=== PATIENT | male | born 1985 | race African-American/Black ===

== ENCOUNTER 2018-01-01 19:46 | Emergency (ER) | payer SELFPAY ==
[2018-01-01] MEDS ORDERED: IBUPROFEN 800 MG TABLET PO ONE (20:22)
[2018-01-01] MEDS ORDERED: OXYCODONE-ACETAMINOPHEN 5-325 MG TABLET PO ONE (20:22)
--- NOTE | 2018-01-01 20:23 | ER Document Report ---
ED GI/ - General Chief Complaint: Testicular Swelling Stated Complaint: TESTICULAR SWELLING Time Seen by Provider: 01/01/18 20:08 Notes: 32-year-old male to emergency department chief complaint of left testicle pain 1 day. Woke up with pain in the left testicle. Nothing seems to make it better or worse. Denies any trauma. Denies any change in sexual partners. No prior history of STD. TRAVEL OUTSIDE OF THE [place] IN LAST 30 DAYS: No - HPI Patient complains to provider of: Groin pain, Testicular pain. No: Abdominal pain Timing/Duration: Gradual, Worse Quality of pain: Achy, Throbbing Severity at maximum: Moderate Severity in ED: Moderate Pain Level: 3 Context: denies: Lifting, Recent trauma Location: Left testicle Sexual history: Active. denies: Multiple partners, STD exposure - Related Data Allergies/Adverse Reactions: No Known Allergies Allergy (Verified 01/01/18 19:48) Past Medical History - General Information source: Patient - Social History Smoking Status: Former Smoker Chew tobacco use (# tins/day): No Frequency of alcohol use: None Drug Abuse: Marijuana Lives with: Family Family History: None Patient has suicidal ideation: No Patient has homicidal ideation: No - Medical History Medical History: Negative Renal/ Medical History: Denies: Hx Peritoneal Dialysis - Immunizations Hx Diphtheria, Pertussis, Tetanus Vaccination: No Review of Systems - Review of Systems Constitutional: No symptoms reported EENT: No symptoms reported Cardiovascular: No symptoms reported Respiratory: No symptoms reported Gastrointestinal: No symptoms reported Genitourinary: Other - Left testicle pain Male Genitourinary: No symptoms reported Musculoskeletal: No symptoms reported Skin: No symptoms reported Hematologic/Lymphatic: No symptoms reported Neurological/Psychological: No symptoms reported Physical Exam - Vital signs Vitals: Temp Pulse Resp BP Pulse Ox 98.8 F 98 14 130/88 H 97 01/01/18 19:52 01/01/18 19:52 01/01/18 19:52 01/01/18 19:52 01/01/18 19:52 Interpretation: Normal - General General appearance: Appears well, Alert - HEENT Head: Normocephalic, Atraumatic Eyes: Normal Pupils: PERRL - Respiratory Respiratory status: No respiratory distress Chest status: Nontender Breath sounds: Normal Chest palpation: Normal - Cardiovascular Rhythm: Regular Heart sounds: Normal auscultation Murmur: No - Abdominal Inspection: Normal Distension: No distension Bowel sounds: Normal Tenderness: Nontender Organomegaly: No organomegaly - Genitourinary Tenderness: Nontender, Epididymis tender Cremasteric reflex: Normal Scrotum: Normal. No: Redness, Hot to touch - Back Back: Normal, Nontender - Extremities General upper extremity: Normal inspection, Nontender, Normal color, Normal ROM , Normal temperature General lower extremity: Normal inspection, Nontender, Normal color, Normal ROM , Normal temperature, Normal weight bearing. No: Rolo's sign - Neurological Neuro grossly intact: Yes Cognition: Normal Orientation: AAOx4 [place] Coma Scale Eye Opening: Spontaneous [place] Coma Scale Verbal: Oriented [place] Coma Scale Motor: Obeys Commands [place] Coma Scale Total: 15 Speech: Normal Motor strength normal: LUE, RUE, LLE, RLE Sensory: Normal - Psychological Associated symptoms: Normal affect, Normal mood - Skin Skin Temperature: Warm Skin Moisture: Dry Skin Color: Normal Course - Re-evaluation Re-evalutation: 01/01/18 21:37 More likely has epididymitis. Will order ultrasound to rule out torsion. Will get urinalysis and reassess. - Vital Signs Vital signs: Temp Pulse Resp BP Pulse Ox 98.8 F 98 14 130/88 H 97 01/01/18 19:52 01/01/18 19:52 01/01/18 19:52 01/01/18 19:52 01/01/18 19:52 - Laboratory Laboratory results interpreted by me: 01/01/18 20:39 Urine Ketones 80 H Urine Urobilinogen 2.0 H Ur Leukocyte Esterase SMALL H Discharge - Discharge Clinical Impression: Epididymitis Condition: Good Disposition: HOME, SELF-CARE Instructions: Epididymitis ([facility]) Additional Instructions: Take all medications as prescribed. Return for any worsening symptoms or concerns. Prescriptions: Doxycycline Hyclate 100 mg PO BID 14 Days #28 capsule Hydrocodone/Acetaminophen [[place] 5-325 mg Tablet] 1 tab PO TID PRN 3 Days #9 tablet PRN Reason: Pain Scale Of 3
[2018-01-01 21:00] LABS: APPEARANCE,URINE CLEAR; BILIRUBIN,URINE NEGATIVE (NEGATIVE); COLOR,URINE YELLOW; GLUCOSE, URINE NEGATIVE (NEGATIVE); KETONES,URINE 80 mg/dL (NEGATIVE); LEUKOCYTE ESTERASE,URINE SMALL (NEGATIVE); NITRITE,URINE NEGATIVE (NEGATIVE); PROTEIN,URINE NEGATIVE (NEGATIVE)
[2018-01-01] MEDS ORDERED: CEFTRIAXONE INJ 250 MG VIAL IM ONE (21:40)
[2018-01-01] MEDS ORDERED: DOXYCYCLINE HYCLATE 100 MG TABLET PO ONE (21:40)
--- NOTE | 2018-01-01 21:41 | RADIOLOGY REPORT (SQ) ---
EXAM DESCRIPTION: U/S SCROTUM W/DOPPLER COMPLETED DATE/TIME: 01/01/2018 9:29 pm REASON FOR STUDY: left testicle pain COMPARISON: None. TECHNIQUE: Static and realtime peace scale imaging of the scrotum and testes. Selected color Doppler and spectral images recorded to document blood flow. LIMITATIONS: None. FINDINGS: RIGHT: TESTICLE: Normal size, 4.6 x 2.3 x 3 cm. Normal echotexture. Normal blood flow. No mass. EPIDIDYMIS: Normal, 1.1 x 1.2 x 1.1 cm. HYDROCELE OR VARICOCELE: No. HERNIA OR EXTRA-TESTICULAR MASS: No. OTHER: No other significant finding. LEFT: TESTICLE: Normal size by 3.7 x 2.8 x 3.8 cm. Normal echotexture. Normal blood flow. No mass. EPIDIDYMIS: Enlarged, somewhat hyperemic. 1.6 x 1.4 x 1.4 cm. HYDROCELE OR VARICOCELE: There is a small varicocele. HERNIA OR EXTRA-TESTICULAR MASS: No. OTHER: No other significant finding. IMPRESSION: Small left varicocele and left epididymitis. Blood flow was present to each testicle. TECHNICAL DOCUMENTATION: JOB ID: [id number]- All Rights Reserved Reading location - IP/workstation name: [email or web address]
[2018-01-01] MEDS ORDERED: LIDOCAINE 1% INJ-PF (10 MG/ML) 30 ML SDV ONE (21:52)
[2018-01-01 22:20] LABS: CHLAM PCR NOT DETECTED (NOT DETECT); GON PCR NOT DETECTED (NOT DETECT)
[2018-01-01 23:01] VITALS: BP 132/84
== END 2018-01-01 23:01 | disposition home or self-care (01) ==
LOC: ER 19:46
DX: N45.1 Epididymitis (principal); N50.812 Left testicular pain; F12.10 Cannabis abuse, uncomplicated; Z87.891 Personal history of nicotine dependence
CPT/HCPCS: 99284; 96372; 87086; 81001; 87491; 87591; 76870; 93976; J3490; J0696

== ENCOUNTER 2019-08-22 10:06 | Emergency (ER) | payer OTHER ==
[2019-08-22 10:13] VITALS: BP 126/77
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
== END 2019-08-22 10:51 | disposition home or self-care (01) ==
LOC: ER 10:06
DX: M54.9 Dorsalgia, unspecified (principal); M54.5 Low back pain; M54.2 Cervicalgia; M25.519 Pain in unspecified shoulder; V49.40XA Driver injured in collision with unspecified motor vehicles in traffic accident, initial encounter
CPT/HCPCS: 99283

== ENCOUNTER 2019-10-13 11:40 | Emergency (ER) | payer OTHER ==
[2019-10-13 12:17] VITALS: BP 119/82
--- NOTE | 2019-10-13 13:03 | ER Document Report ---
HPI - HPI Time Seen by Provider: 10/13/19 12:58 Pain Level: 3 Notes: Otherwise healthy 34-year-old male presents emergency department chief complaint of fever, body aches cough and congestion. Patient reports today he started getting chest wall pain with his cough. He states this is worse with deep breaths. He denies any drug use. He does report that his children recently had similar symptoms. - CONSTITUTIONAL Constitutional: DENIES: Fever, Chills - EENT EENT: DENIES: Sore Throat, Ear Pain, Eye problems - NEURO Neurology: DENIES: Headache, Weakness, Vision blurred, Dizzinesss / Vertigo - CARDIOVASCULAR Cardiovascular: DENIES: Chest pain - RESPIRATORY Respiratory: DENIES: Trouble Breathing, Coughing - GASTROINTESTINAL Gastrointestinal: DENIES: Abdominal Pain, Black / Bloody Stools - REPRODUCTIVE Reproductive: DENIES: : - MUSCULOSKELETAL Musculoskeletal: DENIES: Extremity pain Past Medical History - General Information source: Patient - Social History Smoking Status: Never Smoker Chew tobacco use (# tins/day): No Frequency of alcohol use: Occasional Drug Abuse: Marijuana Family History: None Patient has suicidal ideation: No Patient has homicidal ideation: No - Medical History Medical History: Negative Renal/ Medical History: Denies: Hx Peritoneal Dialysis Surgical Hx: Negative - Immunizations Hx Diphtheria, Pertussis, Tetanus Vaccination: No Vertical Provider Document - CONSTITUTIONAL Notes: PHYSICAL EXAMINATION: GENERAL: Well-appearing, well-nourished and in no acute distress. HEAD: Atraumatic, normocephalic. EYES: Pupils equal round extraocular movements intact, conjunctiva are normal. ENT: Nares patent NECK: Normal range of motion, no cervical lymphadenopathy. LUNGS: No respiratory distress, lung sounds clear and equal bilaterally. Musculoskeletal: Normal range of motion NEUROLOGICAL: Normal speech, normal gait. PSYCH: Normal mood, normal affect. SKIN: Warm, Dry, normal turgor, no rashes or lesions noted. - INFECTION CONTROL TRAVEL OUTSIDE OF THE [place] IN LAST 30 DAYS: No Course - Re-evaluation Re-evalutation: Influenza negative. Patient appears well, nontoxic. EKG reviewed, shows a sinus rhythm, rate of 92, QTc 421, no ST segment elevations or depressions to suggest ischemia. Likely viral illness. - Vital Signs Vital signs: Temp Pulse Resp BP Pulse Ox 99.2 F 88 16 119/82 100 10/13/19 12:16 10/13/19 12:16 10/13/19 12:16 10/13/19 12:16 10/13/19 12:16 Discharge - Discharge Clinical Impression: Viral URI Condition: Stable Disposition: HOME, SELF-CARE Instructions: Upper Respiratory Illness ([facility]), Viral Syndrome ([facility]) Additional Instructions: Your influenza testing today was negative, your EKG was reassuring. I believe your chest pain is coming from your persistent cough.. Please continue to drink plenty of fluids. Continue what you have been doing at home, continue taking Tylenol, ibuprofen and [id number] cough or cold medication. Good handwashing. Follow-up with primary care if not improving over the next 3 to 5 days. Return to the emergency department with new or worsening symptoms. Prescriptions: Benzonatate [Tessalon Perles 100 mg Capsule] 1 - 2 tab PO Q8HP PRN #30 capsule PRN Reason: Prednisone [Deltasone 20 mg Tablet] 3 tab PO DAILY 5 Days #15 tablet Forms: Return to Work
[2019-10-13 13:51] LABS: A TYPE INFLUENZA AG NEGATIVE (NEGATIVE); B INFLUENZA AG NEGATIVE (NEGATIVE)
--- NOTE | 2019-10-13 20:30 | EKG REPORT ---
SEVERITY:- NORMAL ECG - SINUS RHYTHM : Confirmed by: Jack Foster MD 13-Oct-2019 20:30:22
== END 2019-10-13 14:30 | disposition home or self-care (01) ==
LOC: ER 11:40
DX: J06.9 Acute upper respiratory infection, unspecified (principal); R50.9 Fever, unspecified; M79.10 Myalgia, unspecified site
CPT/HCPCS: 87804; 93005; 93010

== ENCOUNTER 2019-11-03 20:32 | Emergency (ER) | payer SELFPAY ==
[2019-11-03 20:39] VITALS: BP 135/87
--- NOTE | 2019-11-03 23:19 | ER Document Report ---
HPI - HPI Time Seen by Provider: 11/03/19 21:31 Pain Level: 1 Notes: Patient is a 34-year-old male presenting to the emergency department chief complaint of numbness and tingling to his left arm. He states this started while he was washing dishes. He states the tingling starts in his bicep area and radiates down into his hand. He denies any chest pain or shortness of breath. Denies this happening in the past. - REPRODUCTIVE Reproductive: DENIES: : - MUSCULOSKELETAL Musculoskeletal: REPORTS: Extremity pain - left arm Past Medical History - General Information source: Patient - Social History Smoking Status: Never Smoker Chew tobacco use (# tins/day): No Frequency of alcohol use: Occasional Drug Abuse: None Family History: None Patient has suicidal ideation: No Patient has homicidal ideation: No - Medical History Medical History: Negative Renal/ Medical History: Denies: Hx Peritoneal Dialysis Surgical Hx: Negative - Immunizations Hx Diphtheria, Pertussis, Tetanus Vaccination: No Vertical Provider Document - CONSTITUTIONAL Notes: PHYSICAL EXAMINATION: GENERAL: Well-appearing, well-nourished and in no acute distress. HEAD: Atraumatic, normocephalic. EYES: Pupils equal round and reactive to light, extraocular movements intact, sclera anicteric, conjunctiva are normal. ENT: Nares patent, oropharynx clear without exudates. Moist mucous membranes. NECK: Normal range of motion, supple without lymphadenopathy LUNGS: Breath sounds clear to auscultation bilaterally and equal. No wheezes rales or rhonchi. HEART: Regular rate and rhythm without murmurs ABDOMEN: Soft, nontender, nondistended abdomen. No guarding, no rebound. No masses appreciated. Musculoskeletal: Normal range of motion, no pitting or edema. No cyanosis. NEUROLOGICAL: Cranial nerves grossly intact. Normal speech, normal gait. 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 PSYCH: Normal mood, normal affect. SKIN: Warm, Dry, normal turgor, no rashes or lesions noted. - INFECTION CONTROL TRAVEL OUTSIDE OF THE [place] IN LAST 30 DAYS: No Course - Re-evaluation Re-evalutation: EKG was obtained, shows a sinus rhythm, normal axis, normal rate, normal rhythm, no ST segment elevations or depressions to suggest ischemia. No indication for further work-up cardiac robles this patient has not had any chest pain or shortness of breath. Exam was consistent with brachial plexitis. Patient was offered a dose of muscle relaxer here in the emergency department, he declined this. A prescription will be sent for Flexeril, he will be instructed to take ibuprofen. This should resolve in the next several days. Patient given ED return precautions as well as instructions on follow-up. Patient verbalized understanding and agreement with same. - Vital Signs Vital signs: Temp Pulse Resp BP Pulse Ox 97.7 F 75 20 135/87 H 100 11/03/19 20:38 11/03/19 20:38 11/03/19 20:38 11/03/19 20:38 11/03/19 20:38 Discharge - Discharge Clinical Impression: Brachioplexitis Condition: Stable Disposition: HOME, SELF-CARE Additional Instructions: Your symptoms are most consistent with a condition called brachial plexitis. Your symptoms should resolve in the next 2 to 3 days. I have prescribed you a muscle relaxer to aid in this. You may also take ibuprofen 600 mg every 6 hours. Your EKG looked normal. Please follow-up with your primary care doctor if not improving over the next 3 to 5 days. Return to the emergency department sooner with any new or worsening symptoms. Prescriptions: Cyclobenzaprine HCl [Flexeril 10 mg Tablet] 10 mg PO TIDP PRN #15 tab PRN Reason: Forms: Return to Work
--- NOTE | 2019-11-04 06:49 | EKG REPORT ---
SEVERITY:- NORMAL ECG - SINUS RHYTHM : Confirmed by: Jack Foster MD 04-Nov-2019 06:48:41
== END 2019-11-03 23:35 | disposition home or self-care (01) ==
LOC: ER 20:32
DX: G54.0 Brachial plexus disorders (principal); R20.0 Anesthesia of skin
CPT/HCPCS: 93005; 93010; 99283